=== PATIENT | male | born 2000 | race Caucasian/White ===

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

== ENCOUNTER → 2022-01-04 | Day surgery (SDC) | payer MEDICAID ==
[2022-01-04] VITALS (12 sets, daily range): BP systolic 99–128; BP diastolic 45–96
[~2022-01-04] VITALS: Ht 185.5 cm; Wt 73.5 kg
[~2022-01-04] MED LIST changes: +ACHD5005 PO; +BUP/EPI 0.5% 1:200,000 (SENSORCAINE) 30 ML VIAL ONE; +DOCU-143 PO; +GLYCOPYRROLATE 0.2 MG/ML (ROBINUL) 2 ML VIAL ONE; +HYDROcodone/APAP 5 MG/325 MG (LORTAB) TAB PO ONE; +HYDROmorphone 2 MG/ML VIAL (DILAUDID) IV ONE; +HYDROmorphone 2 MG/ML VIAL (DILAUDID) ONE; +LIDOCAINE PF 2% 5 ML (XYLOCAINE) VIAL ONE; +MIDAZOLAM 2 MG/2 ML (VERSED) VIAL ONE; +MTP25TSR PO; +NEOSTIGMINE 3 MG/3 ML VIAL ONE; +ONDANSETRON 4 MG/2 ML (SDV) Z0FRAN IVP PRN; +ONDANSETRON 4 MG/2 ML (SDV) Z0FRAN ONE; +ONDANSETRON 4 MG/5 ML ORAL SOLN (ZOFRAN) 5 ML PO ONE; +ROCURONIUM 50 MG/5 ML (ZEMURON) VIAL IV ONE; +SEVOFLURANE (ULTANE) 15 ML INHAL SOLN ONE; +ceFAZolin 2 GM IV Premixed 50 ML IV ONE; +fentaNYL INJ 100 MCG/2 ML AMP ONE; +morphine INJ 10 MG/ML 1ML (SYR OR VIAL) IVP ONE; +proPOfol 200 MG/20 ML (DIPRIVAN) VIAL IV ONE
[2022-01-04] MEDS: LACTATED RINGERS 1,000 ML IV PRN ×3 (06:28→11:35)
--- NOTE | 2022-01-04 08:12 | Progress Note-Pre Operative ---
Pre-Operative Progress Note H&P Reviewed The H&P was reviewed, patient examined and no changes noted. Date Seen by Provider: Jan 04, 2022 Time Seen by Provider: 07:54 Date H&P Reviewed: Jan 04, 2022 Time H&P Reviewed: 07:54 Pre-Operative Diagnosis: biliary dyskinesia VERENICE RODRIGUEZ DO Jan 04, 2022 08:12
--- NOTE | 2022-01-04 10:39 | Discharge Inst-Simple/Standard ---
Discharge Inst-Standard Discharge Medications New, Converted or Re-Newed RX: Transmitted to Pharmacy Patient Instructions/Follow Up Plan of Care/Instructions/FU: 2 weeks Melquiades Activity as Tolerated: No Discharge Diet: Regular Diet Other Inst to Patient Follow up Appt: Make appointment for 2 weeks. Instructions: No lifting greater than 10 pounds. No strenuous activity. May shower in 24 hours, no tub bath or soaking. Use incentive spirometer at home as directed. No Smoking Skin/Wound Care: You have special glue over incision, it will fall off on it's own. Symptoms to Report: Appetite Changes, Extremity Discoloration, Numbness/Tingling, Swelling Increased, Bleeding Excessive, Eyesight Changes, Pain Increased, Urine Color Change, Constipation(Persistent), Fever over 101 degree F, Pain/Pressure in chest, Urinating Difficulty, Cough Up/Vomit Blood, Heart Beat Irreg/Pounding, Pain/Pressure in jaw, Vaginal Bleeding Increase, Cramps in feet or legs, Lightheadedness, Pain/Pressure in shoulder, Diarrhea(Persistent), Memory Changes Suddenly, Questions/Concerns, Weight gain consecutive days, Dizziness/Fainting, Nausea/Vomiting, Shortness of Breath, Weight gain over 2 pounds. If eyes or skin turn yellow notify physician. If questions or concerns contact your physician Or seek help at emergency department. VERENICE RODRIGUEZ DO Jan 04, 2022 10:39
--- NOTE | 2022-01-04 10:45 | Progress Note-Post Operative ---
Post-Operative Progess Note Surgeon (s)/Dog Breeder (s) Surgeon VERENICE RODRIGUEZ DO Dog Breeder: Jeff Stark Pre-Operative Diagnosis biliary dyskinesia Post-Operative Diagnosis biliary dyskinesia, dilated distal appendix Procedure & Operative Findings Date of Procedure 01/04/22 Procedure Performed/Findings PROCEDURE: Laparoscopic cholecystectomy with intraoperative cholangiogram, appendectomy. COMPLICATIONS: None. PROCEDURE: The patient was taken to the operating suite and was prepped and draped in sterile fashion. A surgical pause was performed. Just superior to the umbilicus, a 12 mm incision was made. Dissection was taken down to the fascia, which was then scored and grasped with a Mark and the abdomen was then entered. A 0 Vicryl suture was placed in a [id number] fashion and a Baeza trocar was placed and secured. Pneumoperitoneum was achieved. A 5mm trochar place in the subxyphoid and 2 in the right upper quadrant. The gallbladder was then grasped and elevated. The cystic duct, and cystic artery were then dissected out. Clip was placed on the distal portion of the cystic duct which was then partially transected. An arrow catheter was inserted into the duct. The cholangiogram was then performed. No filing defects and contrast made its way into the duodenum. Catheter removed. Clips were placed on proximal portion of the cystic duct and then the duct was then transected. Clips were placed along the proximal and distal portion of the cystic artery which was then transected. Hook cautery was used to dissect the gallbladder from the gallbladder fossa achieving hemostasis. The gallbladder was placed in an Endobag and removed through the 12 mm trocar site. The abdomen was then reinspected. Copious amounts of irrigation were used to irrigate the abdomen and there were no signs of active bleeding. Hemostasis had been achieved. The appendix was retrocecal and inspected the distal portion appeared dilated. A 5 mm trochar was placed in the suprapubic area. The mesoappendix was then divided with Ligasure. 2.5mm stapler was fired across the base of the appendix. It was placed in endobag and removed through the 12 mm trochar site. The 12 mm fascial defect was then closed with 0 Vicryl suture that had been placed in a [id number] fashion. The abdomen was then desufflated, the trocars were removed. The abdomen was then washed and dried. The skin was then closed using 4-0 Monocryl in a subcuticular fashion. The abdomen was washed and dried and Skin Affix was place over incisions. Patient tolerated the procedure well without any complications and was taken to the recovery room in stable condition. Anesthesia Type general Estimated Blood Loss Estimated blood loss (mL): min Specimens/Packing Specimens Removed gallbladder, appendix VERENICE RODRIGUEZ DO Jan 04, 2022 10:45
--- NOTE | 2022-01-04 12:03 | Diagnostic Imaging Report ---
INDICATION: Fluoroscopy during intraoperative cholangiogram. Fluoroscopy was provided in the OR during intraoperative cholangiogram. Seven seconds of fluoroscopic time was utilized. Images demonstrate contrast being injected via the cystic duct remnant. Intrahepatic and extrahepatic bile ducts are normal caliber. There is normal flow of contrast into the duodenum. No filling defects are seen. IMPRESSION: Fluoroscopy during intraoperative cholangiogram. Dictated by: Dictated on workstation # [id number]
--- NOTE | 2022-01-04 12:21 | Anesthesia-General Post-Op ---
MAC Patient Condition Mental Status/LOC: Same as Preop Cardiovascular: Satisfactory Nausea/Vomiting: Absent Respiratory: Satisfactory Pain: Controlled Complications: Absent Post Op Complications Complications None Follow Up Care/Instructions Patient Instructions None needed. Anesthesiology Discharge Order Discharge Order Patient is doing well, was C/O nausea earlier but improved currently, stable vital signs, no apparent adverse anesthesia problems. No complications reported per nursing. PAOLA FELIX DO Jan 04, 2022 12:21
== END ==
LOC: SDC 05:50
PROVIDERS: ATTEND Surgery
DX: K35.80 Unspecified acute appendicitis (principal); K81.1 Chronic cholecystitis; K83.8 Other specified diseases of biliary tract; Z79.899 Other long term (current) drug therapy
CPT/HCPCS: 76000; 87081; 88304